=== PATIENT | male | born 1975 | race Caucasian/White ===

== ENCOUNTER 2018-11-10 12:40 | Emergency (ER) | payer SELFPAY ==
[~2018-11-10] VITALS: Ht 167.6 cm; Wt 98.0 kg
--- NOTE | ~2018-11-10 | EKG ---
[place], [place] ELECTROCARDIOGRAM REPORT NAME: CYNTHIA MARQUEZ UNIT #: [id number] ROOM: DOCTOR: EPIPHANY DRAFT REPORT BIRTHDATE: [address] 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
--- NOTE | ~2018-11-10 | EKG ---
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
[2018-11-10 13:02] LABS: BASO # 0.1 10*3/uL (0.0-0.1); BASO % 0.6 % (0.0-1.0); EOS # 0.2 10*3/uL (0.0-0.4); EOS % 0.8 % (1.0-4.0); HEMATOCRIT 52.2 % (42.0-52.0); HEMOGLOBIN 17.4 g/dl (14.0-18.0); LYMPH # 2.5 10*3/uL (1.3-4.4); MEAN CELL VOLUME 89.1 fl (80.0-94.0); MEAN CORPUSCULAR HGB 29.7 pg (27.0-31.0); MEAN CORPUSCULAR HGB CONC 33.3 g/dl (33.0-37.0); MEAN PLATELET VOLUME 11.8 fl (9.6-12.3); MONO # 1.4 10*3/uL (0.1-1.0); MONO % 6.2 % (3.0-9.0); NEUT # 18.6 10*3/uL (2.3-7.9); NEUT % 80.7 % (47.0-73.0); PLATELET COUNT AUTOMATED 277 10*3/uL (130-400); RED BLOOD COUNT 5.86 10*6/uL (4.50-5.90); RED CELL DISTRI WIDTH 14.5 % (0-14.5)
[2018-11-10 13:12] LABS: ACT PARTIAL THROMBO TIME 25.8 SECONDS (20.0-32.1); INTERNATIONAL NORM RATIO 0.9 (2.0-3.5)
[2018-11-10 13:21] LABS: ALBUMIN 4.6 gm/dl (3.1-4.5); ALKALINE PHOSPHATASE 95 U/L (45-117); BUN 13 mg/dl (7-24); CHLORIDE 105 mmol/L (98-107); CREATININE 1.01 mg/dL (0.70-1.30); POTASSIUM 4.2 mmol/L (3.5-5.1); SGOT/AST 21 IU/L (3-35); SGPT/ALT 65 U/L (12-78); SODIUM 139 mmol/L (136-145); TOTAL PROTEIN 8.1 gm/dL (6.4-8.2)
[2018-11-10 13:27] LABS: TROPONIN I 0.051 ng/ml (<0.045)
== END 2018-11-10 13:30 | disposition short-term general hospital (02) ==
LOC: ED 12:40
PROVIDERS: Emergency Medicine
DX: I21.3 ST elevation (STEMI) myocardial infarction of unspecified site (principal); F17.200 Nicotine dependence, unspecified, uncomplicated

== ENCOUNTER 2020-01-10 01:46 | Observation (INO) | payer SELFPAY ==
[~2020-01-10] VITALS: Ht 175.2 cm; Wt 80.1 kg
[2020-01-10 01:50] VITALS: BP 114/90
[2020-01-10 02:03] LABS: BASO # 0.1 10*3/uL (0.0-0.1); BASO % 0.9 % (0.0-1.0); EOS # 0.4 10*3/uL (0.0-0.4); EOS % 3.3 % (1.0-4.0); HEMATOCRIT 49.4 % (42.0-52.0); LYMPH # 3.6 10*3/uL (1.3-4.4); LYMPH % 30.5 % (27.0-41.0); MEAN CORPUSCULAR HGB 30.1 pg (27.0-31.0); MEAN CORPUSCULAR HGB CONC 33.8 g/dl (33.0-37.0); MEAN PLATELET VOLUME 11.2 fl (9.6-12.3); MONO % 8.7 % (3.0-9.0); NEUT # 6.6 10*3/uL (2.3-7.9); NEUT % 56.3 % (47.0-73.0); PLATELET COUNT AUTOMATED 282 10*3/uL (130-400); RED BLOOD COUNT 5.55 10*6/uL (4.50-5.90); RED CELL DISTRI WIDTH 13.3 % (0-14.5); WHITE BLOOD COUNT 11.7 10*3/uL (4.8-10.8)
[2020-01-10 02:14] LABS: ACT PARTIAL THROMBO TIME 31.2 SECONDS (20.0-32.1); INTERNATIONAL NORM RATIO 0.9 (2.0-3.5)
[2020-01-10 02:19] LABS: ALBUMIN 4.1 gm/dl (3.1-4.5); ALKALINE PHOSPHATASE 96 U/L (45-117); BUN 17 mg/dl (7-24); CHLORIDE 109 mmol/L (98-107); POTASSIUM 3.6 mmol/L (3.5-5.1); SGOT/AST 19 IU/L (3-35); SGPT/ALT 30 U/L (12-78); SODIUM 140 mmol/L (136-145); TOTAL PROTEIN 7.7 gm/dL (6.4-8.2)
[2020-01-10 02:22] LABS: TROPONIN I < 0.015 ng/ml (<0.045)
[2020-01-10 02:50] VITALS: BP 113/77
[2020-01-10 04:10] VITALS: BP 104/84
[2020-01-10] MEDS ORDERED: ASPIRIN ADULT L81 M1 PO (04:18)
[2020-01-10 08:00] VITALS: BP 106/74
[2020-01-10 16:00] VITALS: BP 100/61
[2020-01-10 20:00] VITALS: BP 98/56
[2020-01-11] VITALS: BP 102/69
[2020-01-11] MEDS ORDERED: METOPROLOL SUCC25 M2 PO (05:08)
[2020-01-11] MEDS ORDERED: ATORVASTATIN CA40 M1 PO (05:08)
[2020-01-11 06:48] LABS: BASO # 0.1 10*3/uL (0.0-0.1); BASO % 0.8 % (0.0-1.0); EOS # 0.3 10*3/uL (0.0-0.4); EOS % 3.3 % (1.0-4.0); LYMPH # 2.8 10*3/uL (1.3-4.4); LYMPH % 31.3 % (27.0-41.0); MEAN CELL VOLUME 91.9 fl (80.0-94.0); MEAN CORPUSCULAR HGB CONC 32.6 g/dl (33.0-37.0); MEAN PLATELET VOLUME 11.8 fl (9.6-12.3); MONO # 0.8 10*3/uL (0.1-1.0); MONO % 9.3 % (3.0-9.0); NEUT # 4.9 10*3/uL (2.3-7.9); PLATELET COUNT AUTOMATED 248 10*3/uL (130-400); RED BLOOD COUNT 5.44 10*6/uL (4.50-5.90); RED CELL DISTRI WIDTH 13.7 % (0-14.5); WHITE BLOOD COUNT 8.8 10*3/uL (4.8-10.8)
[2020-01-11 07:26] LABS: CHLORIDE 109 mmol/L (98-107); POTASSIUM 4.3 mmol/L (3.5-5.1); SODIUM 140 mmol/L (136-145)
[2020-01-11 07:32] LABS: BUN 15 mg/dl (7-24); CREATININE 0.93 mg/dL (0.70-1.30)
== END 2020-01-11 07:45 | disposition short-term general hospital (02) ==
LOC: ED 01:46 → EDHOLD 03:28 → 5E 03:39
PROVIDERS: Emergency Medicine; Internal Medicine; ADMIT Internal Medicine; ATTEND Internal Medicine
DX: R07.89 Other chest pain (principal); I49.9 Cardiac arrhythmia, unspecified; D72.829 Elevated white blood cell count, unspecified; E87.8 Other disorders of electrolyte and fluid balance, not elsewhere classified; I21.3 ST elevation (STEMI) myocardial infarction of unspecified site; I48.0 Paroxysmal atrial fibrillation; F17.210 Nicotine dependence, cigarettes, uncomplicated